=== PATIENT | female | born 1940 | race African-American/Black ===

== ENCOUNTER 2019-02-28 10:51 | Outpatient (CLI) | payer MEDICARE ==
--- NOTE | 2019-02-28 14:36 | Mammography Report ---
BONE DEXA. History: M81.0 Procedure: 3 site bone densitometry performed on a Hologic scanner. Comparison: None Findings: The BMD of the lumbar spine is 0.991 gm/cm2 with a T-score of -0.5 and a Z-score of +2.2 . The bone mineral density (BMD) of the left femoral neck is 0.666 gm/cm2 with a T-score of -1.6 and a Z-score of +0.6. The BMD of the total left hip is 0.825 gm/cm2 with a T-score of -1.0 and a Z-score of +1.1. Impression: WHO Classification: Normal with average fracture risk based on lumbar spine and total left hip measur ements. WHO classification: Osteopenia with increased fracture risk based on left femoral neck measurements. The FRAX 10 year fracture probability for a major osteoporotic fracture is 8.4%. The FRAX 10 year fracture probability for hip fracture is 2.1%. Pharmacological treatment, if not already prescribed should be started. A followup bone density test is recommended in one year to monitor response to therapy. Note:FRAX version 3.01. Fracture probability calculated for an untreated patient. Fracture probabilit y may be lower if the patient has received treatment. RECOMMENDATION: Clinical correlation and routine screening. Definitions: BMD = Bone Mineral Density T score = BMD related to mean peak bone mass of young adult (Day expressed an standard deviation) Z score = Age-matched BMD expressed in SD World health organization (WHO) diagnostic criteria: Normal: T score greater than -1 SD. Osteopenia: T score between - SD and -2.4 SD. Osteoporosis: T score -2.5 SD or below Note: BMD is not the only risk factor for fracture; also consider factors such as the patient's age, risk of falling, previous osteoporotic fracture, family history of osteoporotic fractures, smoking st atus and low body weight. All treatment decisions require clinical judgment and consideration of individual patient factors inc luding patient preferences, comorbidities, previous drug use and risk factors not captured in the FRA X model (e.g. Frailty, falls, vitamin D deficiency, increased bone turnover, interval significant dec line in BMD). A more detailed DEXA Bone Densitometry report is available upon request. Signer Name: Oc Mistry MD Signed: 02/28/2019 2:31 PM Workstation Name: [id number]
== END 2019-02-28 10:52 | disposition home or self-care (01) ==
LOC: MAMMO 10:51
PROVIDERS: ATTEND Family Medicine
DX: M81.0 Age-related osteoporosis without current pathological fracture (principal)
CPT/HCPCS: 77080

== ENCOUNTER 2020-02-20 09:57 | Outpatient (CLI) | payer MEDICARE | END 2020-02-20 09:58 | disposition home or self-care (01) | LOC: ECHO 09:57 | PROVIDERS: ATTEND Family Medicine | DX: R01.1 Cardiac murmur, unspecified (principal) | CPT/HCPCS: 93306 ==